=== PATIENT | male | born 1965 | race Caucasian/White ===

== ENCOUNTER 2018-08-29 15:58 | Outpatient (REF) | payer BC, SELFPAY ==
[2018-08-29 21:45] LABS: ALT 40 U/L (12-78); Alkaline Phosphatase 53 U/L (46-116); Anion Gap 10.3 mmol/L (3-11); BUN 12 mg/dL (7-18); Bilirubin, Total 0.7 mg/dL (0.2-1.0); CO2 26.7 mmol/L (21.0-32.0); CREATININE 0.99 mg/dL (0.70-1.30); Calcium 9.7 mg/dL (8.5-10.1); Chloride 104 mmol/L (98-107); Cholesterol 226 mg/dL (50-200); Glucose 104 mg/dL (70-100); HDL Cholesterol 48 mg/dL (40-60); LDL CHOLESTEROL 145 mg/dL (<100); Sodium 141 mmol/L (136-145); Total Protein 7.7 g/dL (6.4-8.2); Triglyceride 146 mg/dL (30-150)
[2018-08-29 21:59] LABS: AST 12 U/L (15-37); Albumin 4.3 g/dL (3.4-5.0)
== END 2018-08-29 16:18 ==
LOC: NCHCN 15:58
PROVIDERS: Visit Provider Family Medicine
DX: R00.2 Palpitations (principal); I10 Essential (primary) hypertension; F41.9 Anxiety disorder, unspecified
CPT/HCPCS: 80053; 80061; 83721